=== PATIENT | male | born 1960 | race Hispanic/Latino ===

== ENCOUNTER 2017-11-10 11:53 | Observation (INO) | payer OTHER ==
[~2017-11-10] VITALS: Ht 175.3 cm; Wt 151.0 kg
[~2017-11-10 11:53] MED LIST: BUPR300T54 PO; COLC0.6C3 PO; DIGO125T87 PO; FERR325T22 PO; FURO80TA87 PO; INSU100C6 SQ; INSU100I21 SQ; INSU100V12 SQ; LISI2.5T2 PO; METO100T14 PO; METO2.5T2 PO; METO5VIA2 IJ; MONT10TA24 PO; NITR0.4T SL; POTA10CA44 PO; PRAV20TA4 PO; RANI300C PO; TRAZ150T79 PO; WARF-57 PO; WARF7.5T49 PO
[2017-11-10] MEDS ORDERED: SODIUM CHLORIDE 0.9% 1000ML 1,000 ML IV SCH (12:19)
[2017-11-10] MEDS ORDERED: MORPHINE SULFATE 2 MG/ML 1ML SYG IV PRN (12:30)
[2017-11-10] MEDS ORDERED: LACTULOSE 20 GM/30 ML UDCUP PO PRN (12:30)
[2017-11-10] MEDS ORDERED: NITROGLYCERIN 0.4 MG SL TAB SL PRN ×2 (12:30→17:45)
[2017-11-10] MEDS ORDERED: ACETAMINOPHEN-CODEINE 300/30MG TAB PO PRN ×2 (12:30)
[2017-11-10] MEDS ORDERED: MAG HYDROX/AL HYDROX/SIMETH ES 30 ML SUSP UDCUP PO PRN (12:30)
[2017-11-10] MEDS ORDERED: MEROPENEM 500MG+NS 50ML 50 ML IV SCH (12:30)
[2017-11-10] MEDS ORDERED: HYDRALAZINE HCL 20 MG/ML VIAL IV PRN (12:30)
[2017-11-10] MEDS ORDERED: ACETAMINOPHEN 325 MG TAB PO PRN ×2 (12:30)
[2017-11-10] MEDS ORDERED: GUAIFENESIN-DM 200/20 MG 10 ML PO PRN (12:30)
[2017-11-10] MEDS ORDERED: ONDANSETRON HCL 4 MG/2 ML VIAL IV PRN (12:30)
[2017-11-10] MEDS ORDERED: MORPHINE SULFATE 4 MG/1ML SYG IV PRN (12:30)
[2017-11-10 12:51] LABS: HEMATOCRIT 32.4 % (42-54); MEAN CORPUSCULAR HGB CONC 32.2 g/dL (32.0-36.0); PLATELET COUNT (AUTO) 161 K/uL (130-400); RED BLOOD CELL COUNT(AUTO) 3.73 MIL/uL (4.50-6.20); RED CELL DISTRIBUTION WIDTH 17.2 % (11.0-15.5); WHITE BLOOD COUNT (AUTO) 11.9 K/uL (4.8-10.8)
[2017-11-10] MEDS ORDERED: DIATR MEGLU/DIATRIZOATE SODIUM 30 ML BOTTLE ONE (12:55)
[2017-11-10 13:00] VITALS: BP 134/93
[2017-11-10 13:17] LABS: BAND NEUTROPHILS % (MANUAL) 1 % (0-2); BASOPHILS % (MANUAL) 1 % (0-2); EOSINOPHILS % (MANUAL) 1 % (1-6); LYMPHOCYTES % (MANUAL) 8 % (22-44); MONOCYTES % (MANUAL) 3 % (2-9); SEGMENTED NEUTROPHILS % 86 % (40-70)
[2017-11-10 13:21] LABS: MAN.DIFF COMMENT-IMPRESSION MANUAL DIFFERENTIAL; PLATELET MORPHOLOGY COMMENT ADEQUATE
[2017-11-10 13:41] LABS: ALBUMIN 2.6 g/dL (3.5-5.0); BILIRUBIN,TOTAL 0.6 mg/dL (0.2-1.0); CREATININE 1.9 mg/dL (0.5-1.5); POTASSIUM 3.6 mmol/L (3.5-5.1); TOTAL PROTEIN, SERUM 7.8 g/dL (6.0-8.3)
[2017-11-10 13:46] LABS: INR 2.6 (0.85-1.15); PARTIAL THROMBOPLASTIN TIME 55.5 SEC (26.3-35.5); PROTHROMBIN TIME 26.8 SEC (9.6-11.6)
[2017-11-10] MEDS: MEROPENEM 500 MG VIAL IVP SCH ×2 (13:49→21:22)
[2017-11-10] MEDS: METRONIDAZOLE 500MG/100ML BAG 100 ML IV SCH ×2 (13:49→21:22)
[2017-11-10 14:15] LABS: HIGH SENSITIVITY CRP 168.27 mg/L (0.0-3.0)
[2017-11-10] MEDS ORDERED: POTASSIUM CHLORIDE 20 MEQ ERTAB PO PRN (14:45)
[2017-11-10] MEDS ORDERED: POTASSIUM CHLORIDE 20MEQ/100ML 100 ML IV PRN (14:45)
[2017-11-10] MEDS ORDERED: LIDOCAINE HCL-MPF 1% 2ML VIAL IVP PRN (14:45)
[2017-11-10] MEDS ORDERED: POTASSIUM CHLORIDE 10% ELIXIR 20 MEQ/15 ML UDCUP PO PRN (14:45)
[2017-11-10 15:59] VITALS: BP 130/67
[2017-11-10] MEDS: INSULIN HUMULIN R 100 UNIT/ML 3ML SQ SCH ×2 (16:30→21:00)
[2017-11-10] MEDS ORDERED: TRAMADOL HCL 50 MG TABLET PO PRN (17:45)
[2017-11-10] MEDS ORDERED: COLCHICINE 0.6 MG TABLET PO PRN (17:45)
[2017-11-10] MEDS ORDERED: INSU300I SQ (18:02)
[2017-11-10] MEDS ORDERED: METO5TAB2 PO (18:02)
[2017-11-10] MEDS ORDERED: TRAM50TA4 PO (18:02)
[2017-11-10] MEDS ORDERED: HYDR25PO MC (18:02)
[2017-11-10] MEDS ORDERED: LORA10CA9 PO (18:02)
[2017-11-10] MEDS ORDERED: FLUO40CA7 PO (18:02)
[2017-11-10] MEDS ORDERED: GABA-529 PO (18:02)
[2017-11-10] MEDS ORDERED: ALLO100T PO (18:02)
[2017-11-10] MEDS ORDERED: INSU100I15 SQ (18:03)
[2017-11-10 19:00] VITALS: BP 140/91
[2017-11-10] MEDS: FUROSEMIDE 80 MG TABLET PO SCH (19:25)
[2017-11-10 19:49] LABS: BILIRUBIN,URINE Negative (NEGATIVE); COLOR,URINE Yellow (YELLOW); GLUCOSE, URINE (UA) Negative (NEGATIVE); KETONES,URINE Negative (NEGATIVE); LEUKOCYTE ESTERASE ,URINE Negative (NEGATIVE); NITRATE,URINE Negative (NEGATIVE); OCCULT BLOOD,URINE Negative (NEGATIVE); PROTEIN,URINE Negative (NEGATIVE)
[2017-11-10 19:54] LABS: APPEARANCE,URINE SLIGHTLY CLOUDY (CLEAR)
[2017-11-10 20:05] LABS: RBC,URINE 0-1 /HPF (0-1); WBC,URINE 0-1 /HPF (0-1)
[2017-11-10 20:06] LABS: BACTERIA,URINE Rare /HPF (None Seen); SQUAMOUS EPITHELIAL CELL,UR Few /LPF (0-2)
[2017-11-10] MEDS ORDERED: RANITIDINE HCL 300 MG PO SCH (21:00)
[2017-11-10] MEDS: FAMOTIDINE/PF 20 MG/2 ML VIAL IV SCH (21:22)
[2017-11-10] MEDS: ATORVASTATIN CALCIUM 10 MG TABLET PO SCH (21:23)
[2017-11-10] MEDS: TRAZODONE HCL 50 MG TAB PO SCH (21:23)
[2017-11-10] MEDS: FERROUS SULFATE 325 MG TABLET.DR PO SCH (21:23)
[2017-11-10] MEDS: METOCLOPRAMIDE 5 MG TABLET PO SCH (21:23)
[2017-11-10] MEDS: METOPROLOL TARTRATE 50 MG TAB PO SCH (21:23)
[2017-11-10] MEDS: POTASSIUM CHLORIDE 10 MEQ/TAB.SA PO SCH (21:24)
[2017-11-10] MEDS: GABAPENTIN 100 MG CAPSULE PO SCH (21:24)
[2017-11-10 23:00] VITALS: BP 122/65
[2017-11-11 03:00] VITALS: BP 127/72
[2017-11-11 03:59] LABS: HEMATOCRIT 32.1 % (42-54); MEAN CORPUSCULAR HEMOGLOBIN 27.7 pg (27.0-33.0); MEAN CORPUSCULAR HGB CONC 32.2 g/dL (32.0-36.0); MEAN CORPUSCULAR VOLUME 86.2 fL (79-99); PLATELET COUNT (AUTO) 156 K/uL (130-400); RED BLOOD CELL COUNT(AUTO) 3.72 MIL/uL (4.50-6.20); RED CELL DISTRIBUTION WIDTH 17.2 % (11.0-15.5); WHITE BLOOD COUNT (AUTO) 11.2 K/uL (4.8-10.8)
[2017-11-11 04:19] LABS: INR 2.32 (0.85-1.15); PARTIAL THROMBOPLASTIN TIME 52.7 SEC (26.3-35.5)
[2017-11-11 04:41] LABS: CREATININE 1.6 mg/dL (0.5-1.5); POTASSIUM 3.4 mmol/L (3.5-5.1)
[2017-11-11 05:11] LABS: HIGH SENSITIVITY CRP 136.8 mg/L (0.0-3.0)
[2017-11-11] MEDS: MEROPENEM 500 MG VIAL IVP SCH ×3 (05:33→17:16)
[2017-11-11] MEDS: METRONIDAZOLE 500MG/100ML BAG 100 ML IV SCH ×3 (05:33→20:29)
[2017-11-11] MEDS: INSULIN HUMULIN R 100 UNIT/ML 3ML SQ SCH ×4 (06:56→20:31)
[2017-11-11 08:00] VITALS: BP 139/79
[2017-11-11] MEDS: INSULIN GLARGINE HUM REC ANLOG 300 UNIT SQ SCH (09:00)
[2017-11-11] MEDS ORDERED: WARFARIN SODIUM 7.5 MG TAB PO SCH (09:00)
[2017-11-11] MEDS: FAMOTIDINE/PF 20 MG/2 ML VIAL IV SCH ×2 (10:11→20:29)
[2017-11-11] MEDS: FUROSEMIDE 80 MG TABLET PO SCH ×2 (10:11→17:21)
[2017-11-11] MEDS: FERROUS SULFATE 325 MG TABLET.DR PO SCH ×2 (10:11→20:30)
[2017-11-11] MEDS: MONTELUKAST SODIUM 10 MG TAB PO SCH (10:12)
[2017-11-11] MEDS: FLUOXETINE HCL 20 MG CAPSULE PO SCH (10:12)
[2017-11-11] MEDS: POTASSIUM CHLORIDE 10 MEQ/TAB.SA PO SCH ×2 (10:12→20:30)
[2017-11-11] MEDS: LISINOPRIL 2.5 MG TABLET PO SCH (10:12)
[2017-11-11] MEDS: ALLOPURINOL 100 MG TABLET PO SCH (10:12)
[2017-11-11] MEDS: LORATADINE 10 MG TABLET PO SCH (10:12)
[2017-11-11] MEDS: METOPROLOL TARTRATE 50 MG TAB PO SCH ×2 (10:12→20:31)
[2017-11-11] MEDS: METOCLOPRAMIDE 5 MG TABLET PO SCH ×3 (10:13→20:30)
[2017-11-11] MEDS: GABAPENTIN 100 MG CAPSULE PO SCH ×3 (10:13→20:29)
[2017-11-11] MEDS: METOLAZONE 2.5 MG TABLET PO SCH (10:13)
[2017-11-11 12:00] VITALS: BP 157/86
[2017-11-11 16:00] VITALS: BP 180/96
[2017-11-11] MEDS ORDERED: DIGOXIN 125 MCG TABLET PO SCH (16:00)
[2017-11-11 19:00] VITALS: BP 117/86
[2017-11-11] MEDS: ATORVASTATIN CALCIUM 10 MG TABLET PO SCH (20:31)
[2017-11-11] MEDS: TRAZODONE HCL 50 MG TAB PO SCH (20:31)
[2017-11-11] MEDS ORDERED: HYDROXYZINE HCL 25 MG TABLET PO SCH (21:00)
[2017-11-11 23:00] VITALS: BP 129/74
[2017-11-12] MEDS: METRONIDAZOLE 500MG/100ML BAG 100 ML IV SCH ×2 (02:58→12:37)
[2017-11-12] MEDS: MEROPENEM 500 MG VIAL IVP SCH ×2 (02:58→12:36)
[2017-11-12 03:00] VITALS: BP 124/80
[2017-11-12 05:54] LABS: HEMATOCRIT 34.8 % (42-54); MEAN CORPUSCULAR HEMOGLOBIN 27.5 pg (27.0-33.0); MEAN CORPUSCULAR HGB CONC 31.9 g/dL (32.0-36.0); MEAN CORPUSCULAR VOLUME 86.2 fL (79-99); PLATELET COUNT (AUTO) 175 K/uL (130-400); RED BLOOD CELL COUNT(AUTO) 4.04 MIL/uL (4.50-6.20); RED CELL DISTRIBUTION WIDTH 17.1 % (11.0-15.5); WHITE BLOOD COUNT (AUTO) 12.5 K/uL (4.8-10.8)
[2017-11-12 06:07] LABS: INR 2.4 (0.85-1.15); PARTIAL THROMBOPLASTIN TIME 51.3 SEC (26.3-35.5); PROTHROMBIN TIME 24.8 SEC (9.6-11.6)
[2017-11-12 06:24] LABS: CREATININE 1.6 mg/dL (0.5-1.5); POTASSIUM 3.5 mmol/L (3.5-5.1)
[2017-11-12] MEDS: INSULIN HUMULIN R 100 UNIT/ML 3ML SQ SCH ×2 (06:36→11:30)
[2017-11-12 08:00] VITALS: BP 150/80
[2017-11-12] MEDS ORDERED: LOPERAMIDE HCL 2 MG CAP PO PRN (08:30)
[2017-11-12 08:31] LABS: HIGH SENSITIVITY CRP 95.86 mg/L (0.0-3.0)
[2017-11-12] MEDS: INSULIN GLARGINE HUM REC ANLOG 300 UNIT SQ SCH (09:00)
[2017-11-12] MEDS ORDERED: LACTOBACILLUS RHAMNOSUS GG 1 EACH CAP.SPRINK PO SCH (09:00)
[2017-11-12] MEDS ORDERED: HYDROCORTISONE 25 MG SUPPOSITORY PR SCH (09:00)
[2017-11-12] MEDS: LISINOPRIL 2.5 MG TABLET PO SCH (09:12)
[2017-11-12] MEDS: METOLAZONE 2.5 MG TABLET PO SCH (09:12)
[2017-11-12] MEDS: FAMOTIDINE/PF 20 MG/2 ML VIAL IV SCH (09:12)
[2017-11-12] MEDS: GABAPENTIN 100 MG CAPSULE PO SCH ×2 (09:13→13:57)
[2017-11-12] MEDS: ALLOPURINOL 100 MG TABLET PO SCH (09:13)
[2017-11-12] MEDS: METOPROLOL TARTRATE 50 MG TAB PO SCH (09:13)
[2017-11-12] MEDS: METOCLOPRAMIDE 5 MG TABLET PO SCH ×2 (09:13→13:57)
[2017-11-12] MEDS: POTASSIUM CHLORIDE 10 MEQ/TAB.SA PO SCH (09:14)
[2017-11-12] MEDS: LORATADINE 10 MG TABLET PO SCH (09:14)
[2017-11-12] MEDS: FLUOXETINE HCL 20 MG CAPSULE PO SCH (09:14)
[2017-11-12] MEDS: FERROUS SULFATE 325 MG TABLET.DR PO SCH (09:15)
[2017-11-12] MEDS: FUROSEMIDE 80 MG TABLET PO SCH (09:15)
[2017-11-12] MEDS: MONTELUKAST SODIUM 10 MG TAB PO SCH (09:20)
[2017-11-12 11:00] VITALS: BP 131/67
[2017-11-12 16:00] VITALS: BP 117/72
== END 2017-11-12 17:25 | disposition home or self-care (01) ==
LOC: EDH 11:53 → EDHIP 11:54 → 3BH 12:16
PROVIDERS: ADMIT Internal Medicine; ATTEND Internal Medicine
DX: K57.92 Diverticulitis of intestine, part unspecified, without perforation or abscess without bleeding (principal); E66.01 Morbid (severe) obesity due to excess calories; I13.0 Hypertensive heart and chronic kidney disease with heart failure and stage 1 through stage 4 chronic kidney disease, or unspecified chronic kidney disease; E11.22 Type 2 diabetes mellitus with diabetic chronic kidney disease; N18.3 Chronic kidney disease, stage 3 (moderate); I50.42 Chronic combined systolic (congestive) and diastolic (congestive) heart failure; J96.10 Chronic respiratory failure, unspecified whether with hypoxia or hypercapnia; I48.91 Unspecified atrial fibrillation; E78.5 Hyperlipidemia, unspecified; G47.33 Obstructive sleep apnea (adult) (pediatric); I25.10 Atherosclerotic heart disease of native coronary artery without angina pectoris; J44.9 Chronic obstructive pulmonary disease, unspecified; K21.9 Gastro-esophageal reflux disease without esophagitis; D72.829 Elevated white blood cell count, unspecified; M10.9 Gout, unspecified; F31.9 Bipolar disorder, unspecified; Z95.2 Presence of prosthetic heart valve; Z82.49 Family history of ischemic heart disease and other diseases of the circulatory system; Z79.01 Long term (current) use of anticoagulants
CPT/HCPCS: 36415 ×3; 74176; 80048 ×2; 80053; 81001; 82948 ×10; 85025; 85027 ×2; 85610 ×3; 85730 ×3; 86141 ×3; 87040 ×2; 87324; 87507; 96365; 96366 ×3; 96375; 96376 ×3; 99285; A4218 ×6; G0378 ×54; J2185 ×7; J3490 ×11; J7030; Q9963

== ENCOUNTER 2017-12-26 16:49 | Observation (INO) | payer OTHER ==
[~2017-12-26] VITALS: Ht 175.3 cm; Wt 162.5 kg
[~2017-12-26 16:49] MED LIST changes: +ALLO100T PO; -BUPR300T54 PO; +FLUO40CA7 PO; +GABA-529 PO; +HYDR25PO MC; -INSU100C6 SQ; +INSU100I15 SQ; -INSU100I21 SQ; -INSU100V12 SQ; +INSU300I SQ; +LORA10CA9 PO; +METO5TAB2 PO; -METO5VIA2 IJ; +TRAM50TA4 PO; -WARF-57 PO
[2017-12-26 17:13] LABS: EOSINOPHILS % (AUTO) 2.1 % (0.0-8.0); HEMATOCRIT 35.4 % (42-54); MEAN CORPUSCULAR HEMOGLOBIN 28.5 pg (27.0-33.0); MEAN CORPUSCULAR VOLUME 88.9 fL (79-99); NEUTROPHILS % (AUTO) 74.9 % (40.0-77.0); PLATELET COUNT (AUTO) 125 K/uL (130-400); RED BLOOD CELL COUNT(AUTO) 3.98 MIL/uL (4.50-6.20); RED CELL DISTRIBUTION WIDTH 19.5 % (11.0-15.5); WHITE BLOOD COUNT (AUTO) 8.7 K/uL (4.8-10.8)
[2017-12-26 17:24] LABS: CREATININE 1.9 mg/dL (0.5-1.5); POTASSIUM 3.7 mmol/L (3.5-5.1)
[2017-12-26] MEDS ORDERED: ASPIRIN 325 MG TABLET ONE (17:24)
[2017-12-26] MEDS ORDERED: ALBUMIN (HUMAN) 25% 100 ML IV ONE (17:24)
[2017-12-26] MEDS ORDERED: FUROSEMIDE 10 MG/ML 4ML VIAL ONE (17:25)
[2017-12-26 17:28] LABS: INR 2.7 (0.85-1.15); PROTHROMBIN TIME 27.8 SEC (9.6-11.6)
[2017-12-26 17:29] LABS: ALBUMIN 3.3 g/dL (3.5-5.0); BILIRUBIN,TOTAL 0.9 mg/dL (0.2-1.0); TOTAL PROTEIN, SERUM 8.4 g/dL (6.0-8.3)
[2017-12-26 17:45] LABS: B-TYPE NATRIURETIC PEPTIDE 498 pg/mL (0-100)
[2017-12-26] MEDS ORDERED: LACTULOSE 20 GM/30 ML UDCUP PO PRN (20:15)
[2017-12-26] MEDS ORDERED: CLONIDINE HCL 0.1 MG TABLET PO PRN (20:15)
[2017-12-26] MEDS ORDERED: ONDANSETRON HCL MDV 20ML 2 MG/ML VIAL IVP PRN (20:15)
[2017-12-26] MEDS ORDERED: ACETAMINOPHEN 325 MG TAB PO PRN ×2 (20:15)
[2017-12-26 22:35] VITALS: BP 140/76
[2017-12-26] MEDS ORDERED: GLUCAGON 1MG KIT 1 MG ML IM PRN (23:15)
[2017-12-26] MEDS ORDERED: NITROGLYCERIN 0.4 MG SL TAB SL PRN (23:15)
[2017-12-26] MEDS ORDERED: POTASSIUM CHLORIDE 20MEQ/100ML 100 ML IV PRN (23:15)
[2017-12-26] MEDS ORDERED: POTASSIUM CHLORIDE 10% ELIXIR 20 MEQ/15 ML UDCUP PO PRN (23:15)
[2017-12-26] MEDS ORDERED: DEXTROSE 50%-WATER 50 ML DISP.SYRIN IV PRN (23:15)
[2017-12-26] MEDS: IPRATROPIUM/ALBUTEROL SULFATE 3 ML SOLUTION IH PRN (23:29)
[2017-12-26] MEDS ORDERED: HYDRALAZINE HCL 20 MG/ML VIAL IV PRN (23:45)
[2017-12-27 03:47] VITALS: BP 116/82
[2017-12-27 04:05] LABS: HEMATOCRIT 32.7 % (42-54); MEAN CORPUSCULAR HEMOGLOBIN 28.8 pg (27.0-33.0); MEAN CORPUSCULAR HGB CONC 32.6 g/dL (32.0-36.0); MEAN CORPUSCULAR VOLUME 88.3 fL (79-99); PLATELET COUNT (AUTO) 124 K/uL (130-400); RED CELL DISTRIBUTION WIDTH 19.1 % (11.0-15.5); WHITE BLOOD COUNT (AUTO) 7.6 K/uL (4.8-10.8)
[2017-12-27 04:11] LABS: CREATININE 1.7 mg/dL (0.5-1.5); POTASSIUM 3.4 mmol/L (3.5-5.1)
[2017-12-27] MEDS: INSULIN R PO SSI SQ SCH ×4 (05:33→22:02)
[2017-12-27] MEDS: INSULIN R NPO SS1 SQ SCH ×2 (05:33)
[2017-12-27] MEDS: FUROSEMIDE 10 MG/ML 4ML VIAL IVP SCH ×2 (05:41→17:33)
[2017-12-27] MEDS: POTASSIUM CHLORIDE 20 MEQ ERTAB PO PRN ×2 (05:42→11:40)
[2017-12-27] MEDS: IPRATROPIUM/ALBUTEROL SULFATE 3 ML SOLUTION IH PRN ×3 (06:19→18:42)
[2017-12-27 07:42] VITALS: BP 110/54
[2017-12-27 09:17] LABS: CREATINE KINASE MB 0.5 ng/mL (0.5-3.6); CREATINE KINASE, TOTAL 57 U/L (21-232); DIGOXIN 0.68 ng/mL (0.50-2.00); MYOGLOBIN 88 ng/mL (10-92); TROPONIN I < 0.04 ng/mL (0.00-0.06)
[2017-12-27] MEDS ORDERED: COLCHICINE 0.6 MG PO PRN (09:45)
[2017-12-27 11:17] VITALS: BP 145/94
[2017-12-27] MEDS ORDERED: INSULIN HUMULIN R 100 UNIT/ML 3ML SQ SCH (11:30)
[2017-12-27] MEDS: LISINOPRIL 2.5 MG TABLET PO SCH (11:39)
[2017-12-27] MEDS: METOCLOPRAMIDE 5 MG TABLET PO SCH ×2 (11:39→17:30)
[2017-12-27] MEDS: GABAPENTIN 100 MG CAPSULE PO SCH ×2 (14:03→20:31)
[2017-12-27] MEDS ORDERED: DIGOXIN 125 MCG TABLET PO SCH (16:00)
[2017-12-27] MEDS: WARFARIN SODIUM 7.5 MG TAB PO SCH ×2 (16:00→17:45)
[2017-12-27 16:40] VITALS: BP 141/79
[2017-12-27] MEDS: FERROUS SULFATE 325 MG TABLET.DR PO SCH (17:30)
[2017-12-27] MEDS: POTASSIUM CHLORIDE 10 MEQ/TAB.SA PO SCH (17:32)
[2017-12-27] MEDS ORDERED: PHARMACY COMMUNICATION MISC SCH (18:00)
[2017-12-27] MEDS ORDERED: COLCHICINE 0.6 MG PO (18:12)
[2017-12-27 19:27] VITALS: BP 153/94
[2017-12-27] MEDS: METOPROLOL TARTRATE 50 MG TAB PO SCH (20:32)
[2017-12-27] MEDS ORDERED: MONTELUKAST SODIUM 10 MG TAB PO SCH (21:00)
[2017-12-27] MEDS ORDERED: ATORVASTATIN CALCIUM 10 MG TABLET PO SCH (21:00)
[2017-12-27] MEDS ORDERED: TRAZODONE HCL 50 MG TAB PO SCH (21:00)
[2017-12-27 23:31] VITALS: BP 157/96
[2017-12-28] MEDS: IPRATROPIUM/ALBUTEROL SULFATE 3 ML SOLUTION IH PRN ×3 (00:32→10:36)
[2017-12-28 03:30] VITALS: BP 141/89
[2017-12-28 03:50] LABS: HEMATOCRIT 33.2 % (42-54); MEAN CORPUSCULAR HEMOGLOBIN 28.3 pg (27.0-33.0); MEAN CORPUSCULAR HGB CONC 31.8 g/dL (32.0-36.0); PLATELET COUNT (AUTO) 108 K/uL (130-400); RED BLOOD CELL COUNT(AUTO) 3.72 MIL/uL (4.50-6.20); RED CELL DISTRIBUTION WIDTH 19.1 % (11.0-15.5); WHITE BLOOD COUNT (AUTO) 7.3 K/uL (4.8-10.8)
[2017-12-28 04:01] LABS: CREATININE 1.7 mg/dL (0.5-1.5); INR 2.13 (0.85-1.15); PARTIAL THROMBOPLASTIN TIME 43.1 SEC (26.3-35.5); POTASSIUM 3.5 mmol/L (3.5-5.1)
[2017-12-28 04:25] LABS: B-TYPE NATRIURETIC PEPTIDE 341 pg/mL (0-100)
[2017-12-28] MEDS: INSULIN R PO SSI SQ SCH ×2 (05:51→11:49)
[2017-12-28] MEDS: FUROSEMIDE 10 MG/ML 4ML VIAL IVP SCH (05:52)
[2017-12-28] MEDS: POTASSIUM CHLORIDE 20 MEQ ERTAB PO PRN (05:53)
[2017-12-28] MEDS: METOCLOPRAMIDE 5 MG TABLET PO SCH ×2 (05:55→11:43)
[2017-12-28 07:28] VITALS: BP 147/84
[2017-12-28] MEDS ORDERED: FLUOXETINE HCL 10 MG CAPSULE PO SCH (09:00)
[2017-12-28] MEDS ORDERED: ALLOPURINOL 100 MG TABLET PO SCH (09:00)
[2017-12-28] MEDS ORDERED: METOLAZONE 2.5 MG TABLET PO SCH (09:00)
[2017-12-28] MEDS: METOPROLOL TARTRATE 50 MG TAB PO SCH (09:03)
[2017-12-28] MEDS: POTASSIUM CHLORIDE 10 MEQ/TAB.SA PO SCH (09:04)
[2017-12-28] MEDS: GABAPENTIN 100 MG CAPSULE PO SCH (09:04)
[2017-12-28] MEDS: FERROUS SULFATE 325 MG TABLET.DR PO SCH (09:04)
[2017-12-28] MEDS: LISINOPRIL 2.5 MG TABLET PO SCH (09:04)
[2017-12-28 11:09] VITALS: BP 145/87
[2017-12-28] MEDS ORDERED: FUROSEMIDE 80 MG TABLET PO SCH (17:00)
== END 2017-12-28 15:22 | disposition home or self-care (01) ==
LOC: EDH 16:49 → EDHIP 18:40 → INTOOBSV 18:40 → 2AH 22:19
PROVIDERS: ADMIT Family Medicine; ATTEND Family Medicine
DX: I13.0 Hypertensive heart and chronic kidney disease with heart failure and stage 1 through stage 4 chronic kidney disease, or unspecified chronic kidney disease (principal); I50.43 Acute on chronic combined systolic (congestive) and diastolic (congestive) heart failure; J96.11 Chronic respiratory failure with hypoxia; I48.91 Unspecified atrial fibrillation; N18.3 Chronic kidney disease, stage 3 (moderate); E78.5 Hyperlipidemia, unspecified; E66.01 Morbid (severe) obesity due to excess calories; F32.9 Major depressive disorder, single episode, unspecified; M10.9 Gout, unspecified; I25.10 Atherosclerotic heart disease of native coronary artery without angina pectoris; G47.33 Obstructive sleep apnea (adult) (pediatric); Z79.01 Long term (current) use of anticoagulants; Z95.2 Presence of prosthetic heart valve; G62.9 Polyneuropathy, unspecified; Z90.49 Acquired absence of other specified parts of digestive tract; E11.9 Type 2 diabetes mellitus without complications
CPT/HCPCS: 36415 ×3; 71045 ×2; 80048 ×2; 80053; 80162; 82550 ×2; 82553; 82948 ×7; 83874; 83880 ×4; 84484 ×2; 85025; 85027 ×2; 85610 ×2; 85730 ×2; 93005 ×2; 94640 ×7; 94664; 96372 ×2; 96374; 96376 ×2; 99285; G0378 ×45; J1815 ×2; J1940 ×4; P9046

== ENCOUNTER 2018-01-26 17:01 | Inpatient (IN) | payer OTHER ==
[~2018-01-26] VITALS: Ht 175.3 cm; Wt 170.6 kg
[2018-01-26 17:22] LABS: BASOPHILS % (AUTO) 0.8 % (0.0-5.0); EOSINOPHILS % (AUTO) 2.4 % (0.0-8.0); HEMATOCRIT 32.6 % (42-54); LYMPHOCYTES % (AUTO) 10.2 % (21.0-51.0); MEAN CORPUSCULAR HGB CONC 32.8 g/dL (32.0-36.0); MEAN CORPUSCULAR VOLUME 88.4 fL (79-99); MONOCYTES % (AUTO) 6.3 % (3.0-13.0); NEUTROPHILS % (AUTO) 80.3 % (40.0-77.0); PLATELET COUNT (AUTO) 140 K/uL (130-400); RED BLOOD CELL COUNT(AUTO) 3.69 MIL/uL (4.50-6.20); RED CELL DISTRIBUTION WIDTH 18.6 % (11.0-15.5); WHITE BLOOD COUNT (AUTO) 8.8 K/uL (4.8-10.8)
[2018-01-26 17:28] LABS: ABG BASE EXCESS 3.4 mmol/L (-2.0-3.0); ABG HCO3 30.8 mmol/L (21.0-28.0); ABG OXYGEN SATURATION 99.1 % (95.0-99.0); ABG PCO2 58 mmHg (35-48)
[2018-01-26] MEDS ORDERED: IPRATROPIUM/ALBUTEROL SULFATE 3 ML SOLUTION IH ONE (17:32)
[2018-01-26 17:37] LABS: INR 2.18 (0.85-1.15); PARTIAL THROMBOPLASTIN TIME 43.4 SEC (26.3-35.5); PROTHROMBIN TIME 22.5 SEC (9.6-11.6)
[2018-01-26 17:45] LABS: CREATININE 2.8 mg/dL (0.5-1.5); POTASSIUM 5.3 mmol/L (3.5-5.1)
[2018-01-26 18:11] LABS: ALBUMIN 3.2 g/dL (3.5-5.0); BILIRUBIN,TOTAL 0.8 mg/dL (0.2-1.0); CREATINE KINASE MB 1.2 ng/mL (0.5-3.6)
[2018-01-26 18:13] LABS: B-TYPE NATRIURETIC PEPTIDE 521 pg/mL (0-100)
[2018-01-26 18:57] LABS: ABG BASE EXCESS 2.4 mmol/L (-2.0-3.0); ABG HCO3 28.8 mmol/L (21.0-28.0); ABG OXYGEN SATURATION 98.8 % (95.0-99.0); ABG PCO2 52 mmHg (35-48)
[2018-01-26] MEDS ORDERED: SODIUM POLYSTYRENE SULFONATE 15 GM/60 ML ML ONE (19:43)
[2018-01-26 23:15] VITALS: BP 119/70
[2018-01-26] MEDS ORDERED: TAMS0.4C32 PO (23:29)
[2018-01-27] MEDS ORDERED: GLUCAGON 1MG KIT 1 MG ML IM PRN (00:30)
[2018-01-27] MEDS ORDERED: LACTULOSE 20 GM/30 ML UDCUP PO PRN (00:30)
[2018-01-27] MEDS ORDERED: ACETAMINOPHEN 325 MG TAB PO PRN ×2 (00:30)
[2018-01-27] MEDS ORDERED: NITROGLYCERIN 0.4 MG SL TAB SL PRN ×2 (00:30→16:30)
[2018-01-27] MEDS ORDERED: DEXTROSE 50%-WATER 50 ML DISP.SYRIN IV PRN (00:30)
[2018-01-27] MEDS ORDERED: GUAIFENESIN-DM 200/20 MG 10 ML PO PRN (00:30)
[2018-01-27] MEDS ORDERED: LORAZEPAM 2 MG/ML 1 ML VIAL IM ONE (00:30)
[2018-01-27 01:45] LABS: CREATINE KINASE MB 0.8 ng/mL (0.5-3.6); CREATINE KINASE, TOTAL 73 U/L (21-232); MYOGLOBIN 148 ng/mL (10-92); TROPONIN I < 0.04 ng/mL (0.00-0.06)
[2018-01-27 04:00] VITALS: BP 109/68
[2018-01-27 04:03] LABS: INR 2.12 (0.85-1.15); PROTHROMBIN TIME 21.9 SEC (9.6-11.6)
[2018-01-27 04:08] LABS: HEMATOCRIT 31.5 % (42-54); MEAN CORPUSCULAR HEMOGLOBIN 28.6 pg (27.0-33.0); MEAN CORPUSCULAR HGB CONC 32.6 g/dL (32.0-36.0); MEAN CORPUSCULAR VOLUME 87.9 fL (79-99); PLATELET COUNT (AUTO) 123 K/uL (130-400); RED BLOOD CELL COUNT(AUTO) 3.59 MIL/uL (4.50-6.20); WHITE BLOOD COUNT (AUTO) 8.9 K/uL (4.8-10.8)
[2018-01-27 04:12] LABS: B-TYPE NATRIURETIC PEPTIDE 407 pg/mL (0-100)
[2018-01-27 04:15] LABS: CREATININE 2.8 mg/dL (0.5-1.5); DIGOXIN 1.11 ng/mL (0.50-2.00); POTASSIUM 4.9 mmol/L (3.5-5.1); THYROID STIMULATING HORMONE 3.43 uIU/mL (0.36-3.74)
[2018-01-27] MEDS: IPRATROPIUM/ALBUTEROL SULFATE 3 ML SOLUTION IH SCH ×3 (06:00→18:08)
[2018-01-27] MEDS ORDERED: INSULIN R NPO SS1 SQ SCH (06:00)
[2018-01-27] MEDS: INSULIN R PO SSI SQ SCH ×4 (07:30→21:05)
[2018-01-27 07:43] LABS: CREATINE KINASE MB 1.1 ng/mL (0.5-3.6); CREATINE KINASE, TOTAL 72 U/L (21-232); MYOGLOBIN 139 ng/mL (10-92); TROPONIN I < 0.04 ng/mL (0.00-0.06)
[2018-01-27 07:45] VITALS: BP 120/72
[2018-01-27] MEDS: LACTULOSE 20 GM/30 ML UDCUP PO SCH ×2 (10:05→20:22)
[2018-01-27] MEDS: FUROSEMIDE 10 MG/ML 4ML VIAL IVP SCH ×2 (10:05→20:22)
[2018-01-27] MEDS: FAMOTIDINE 20MG TAB 20 MG TAB PO SCH (10:05)
[2018-01-27 11:00] VITALS: BP 118/68
[2018-01-27] MEDS ORDERED: COLCHICINE 0.6 MG TABLET PO PRN (16:30)
[2018-01-27 16:31] VITALS: BP 125/82
[2018-01-27] MEDS: FERROUS SULFATE 325 MG TABLET.DR PO SCH (17:42)
[2018-01-27] MEDS: FUROSEMIDE 80 MG TABLET PO SCH (17:42)
[2018-01-27] MEDS: POTASSIUM CHLORIDE 10 MEQ/TAB.SA PO SCH (17:43)
[2018-01-27 19:50] VITALS: BP 150/81
[2018-01-27] MEDS: TAMSULOSIN HCL 0.4 MG CAP.ER.24H PO SCH (20:23)
[2018-01-27] MEDS: HYDROXYZINE HCL 25 MG TABLET PO SCH (20:23)
[2018-01-27] MEDS: ATORVASTATIN CALCIUM 10 MG TABLET PO SCH (20:23)
[2018-01-27] MEDS: MONTELUKAST SODIUM 10 MG TAB PO SCH (20:23)
[2018-01-27] MEDS: RANITIDINE HCL 15 MG/1 ML PO SCH (20:23)
[2018-01-27] MEDS: METOPROLOL TARTRATE 50 MG TAB PO SCH (20:23)
[2018-01-27] MEDS: TRAZODONE HCL 50 MG TAB PO SCH (20:23)
[2018-01-27] MEDS: GABAPENTIN 100 MG CAPSULE PO SCH (20:31)
[2018-01-27] MEDS: METOCLOPRAMIDE 5 MG TABLET PO SCH (20:31)
[2018-01-28] VITALS (7 sets, daily range): BP systolic 121–138; BP diastolic 54–94
[2018-01-28] MEDS: IPRATROPIUM/ALBUTEROL SULFATE 3 ML SOLUTION IH SCH ×5 (00:47→23:34)
[2018-01-28] MEDS: TRAMADOL HCL 50 MG TABLET PO PRN ×2 (02:43→12:51)
[2018-01-28 05:33] LABS: HEMATOCRIT 33.1 % (42-54); MEAN CORPUSCULAR HEMOGLOBIN 28.8 pg (27.0-33.0); MEAN CORPUSCULAR HGB CONC 32.5 g/dL (32.0-36.0); MEAN CORPUSCULAR VOLUME 88.5 fL (79-99); PLATELET COUNT (AUTO) 109 K/uL (130-400); RED BLOOD CELL COUNT(AUTO) 3.74 MIL/uL (4.50-6.20); RED CELL DISTRIBUTION WIDTH 18.3 % (11.0-15.5); WHITE BLOOD COUNT (AUTO) 8.3 K/uL (4.8-10.8)
[2018-01-28 05:50] LABS: CREATININE 2.2 mg/dL (0.5-1.5); POTASSIUM 4.1 mmol/L (3.5-5.1)
[2018-01-28 05:51] LABS: B-TYPE NATRIURETIC PEPTIDE 633 pg/mL (0-100)
[2018-01-28] MEDS: INSULIN R PO SSI SQ SCH ×4 (06:05→21:45)
[2018-01-28] MEDS: FUROSEMIDE 80 MG TABLET PO SCH (07:11)
[2018-01-28] MEDS: FUROSEMIDE 10 MG/ML 4ML VIAL IVP SCH ×2 (07:38→21:37)
[2018-01-28] MEDS: FLUOXETINE HCL 20 MG CAPSULE PO SCH (07:40)
[2018-01-28] MEDS: LISINOPRIL 2.5 MG TABLET PO SCH (07:40)
[2018-01-28] MEDS: METOCLOPRAMIDE 5 MG TABLET PO SCH ×3 (07:40→21:36)
[2018-01-28] MEDS: METOLAZONE 2.5 MG TABLET PO SCH (07:40)
[2018-01-28] MEDS: FAMOTIDINE 20MG TAB 20 MG TAB PO SCH (07:41)
[2018-01-28] MEDS: FERROUS SULFATE 325 MG TABLET.DR PO SCH ×2 (07:41→15:40)
[2018-01-28] MEDS: POTASSIUM CHLORIDE 10 MEQ/TAB.SA PO SCH ×2 (07:41→15:40)
[2018-01-28] MEDS: LORATADINE 10 MG TABLET PO SCH (07:41)
[2018-01-28] MEDS: METOPROLOL TARTRATE 50 MG TAB PO SCH ×2 (07:41→21:36)
[2018-01-28] MEDS: ALLOPURINOL 100 MG TABLET PO SCH (07:41)
[2018-01-28] MEDS: LACTULOSE 20 GM/30 ML UDCUP PO SCH ×2 (07:41→21:35)
[2018-01-28] MEDS: GABAPENTIN 100 MG CAPSULE PO SCH ×3 (07:41→21:36)
[2018-01-28] MEDS: RANITIDINE HCL 15 MG/1 ML PO SCH ×2 (07:42→21:36)
[2018-01-28] MEDS ORDERED: INSULIN GLARGINE 100 UNITS/ML 10 ML VIAL SQ SCH (08:00)
[2018-01-28] MEDS ORDERED: DIGOXIN 125 MCG TABLET PO SCH (09:00)
[2018-01-28] MEDS: WARFARIN SODIUM 7.5 MG TAB PO SCH (15:40)
[2018-01-28] MEDS: MONTELUKAST SODIUM 10 MG TAB PO SCH (21:36)
[2018-01-28] MEDS: TAMSULOSIN HCL 0.4 MG CAP.ER.24H PO SCH (21:36)
[2018-01-28] MEDS: ATORVASTATIN CALCIUM 10 MG TABLET PO SCH (21:36)
[2018-01-28] MEDS: HYDROXYZINE HCL 25 MG TABLET PO SCH (21:37)
[2018-01-28] MEDS: TRAZODONE HCL 50 MG TAB PO SCH (21:37)
[2018-01-29] VITALS (7 sets, daily range): BP systolic 105–148; BP diastolic 65–94
[2018-01-29 05:24] LABS: HEMATOCRIT 32.2 % (42-54); MEAN CORPUSCULAR HEMOGLOBIN 29.1 pg (27.0-33.0); MEAN CORPUSCULAR VOLUME 88.2 fL (79-99); PLATELET COUNT (AUTO) 110 K/uL (130-400); RED BLOOD CELL COUNT(AUTO) 3.65 MIL/uL (4.50-6.20); RED CELL DISTRIBUTION WIDTH 18.3 % (11.0-15.5); WHITE BLOOD COUNT (AUTO) 9.4 K/uL (4.8-10.8)
[2018-01-29 05:31] LABS: INR 1.62 (0.85-1.15); PROTHROMBIN TIME 16.8 SEC (9.6-11.6)
[2018-01-29 05:34] LABS: CREATININE 1.9 mg/dL (0.5-1.5); POTASSIUM 4.1 mmol/L (3.5-5.1)
[2018-01-29 05:50] LABS: B-TYPE NATRIURETIC PEPTIDE 642 pg/mL (0-100)
[2018-01-29] MEDS: INSULIN R PO SSI SQ SCH ×4 (06:16→21:00)
[2018-01-29] MEDS: IPRATROPIUM/ALBUTEROL SULFATE 3 ML SOLUTION IH SCH ×4 (06:28→23:54)
[2018-01-29] MEDS: INSULIN GLARGINE 100 UNITS/ML 10 ML VIAL SQ SCH (08:00)
[2018-01-29] MEDS: FUROSEMIDE 10 MG/ML 4ML VIAL IVP SCH ×2 (10:04→21:22)
[2018-01-29] MEDS: LACTULOSE 20 GM/30 ML UDCUP PO SCH ×2 (12:14→21:22)
[2018-01-29] MEDS: RANITIDINE HCL 15 MG/1 ML PO SCH ×2 (12:14→21:21)
[2018-01-29] MEDS: LORATADINE 10 MG TABLET PO SCH (12:16)
[2018-01-29] MEDS: POTASSIUM CHLORIDE 10 MEQ/TAB.SA PO SCH ×2 (12:16→16:21)
[2018-01-29] MEDS: GABAPENTIN 100 MG CAPSULE PO SCH ×3 (12:16→21:21)
[2018-01-29] MEDS: METOLAZONE 2.5 MG TABLET PO SCH (12:16)
[2018-01-29] MEDS: METOCLOPRAMIDE 5 MG TABLET PO SCH ×3 (12:16→21:21)
[2018-01-29] MEDS: METOPROLOL TARTRATE 50 MG TAB PO SCH ×2 (12:17→21:22)
[2018-01-29] MEDS: FLUOXETINE HCL 20 MG CAPSULE PO SCH (12:17)
[2018-01-29] MEDS: LISINOPRIL 2.5 MG TABLET PO SCH (12:17)
[2018-01-29] MEDS: FERROUS SULFATE 325 MG TABLET.DR PO SCH ×2 (12:17→16:21)
[2018-01-29] MEDS: LEVOFLOXACIN 500 MG/D5W 100 ML 100 ML IV SCH (12:20)
[2018-01-29] MEDS: ALLOPURINOL 100 MG TABLET PO SCH (12:20)
[2018-01-29] MEDS: TRAMADOL HCL 50 MG TABLET PO PRN (14:16)
[2018-01-29] MEDS: WARFARIN SODIUM 7.5 MG TAB PO SCH (16:00)
[2018-01-29] MEDS: TAMSULOSIN HCL 0.4 MG CAP.ER.24H PO SCH (21:21)
[2018-01-29] MEDS: TRAZODONE HCL 50 MG TAB PO SCH (21:21)
[2018-01-29] MEDS: HYDROXYZINE HCL 25 MG TABLET PO SCH (21:21)
[2018-01-29] MEDS: ATORVASTATIN CALCIUM 10 MG TABLET PO SCH (21:21)
[2018-01-29] MEDS: MONTELUKAST SODIUM 10 MG TAB PO SCH (21:22)
[2018-01-30 03:59] VITALS: BP 122/78
[2018-01-30 04:18] LABS: HEMATOCRIT 31.8 % (42-54); MEAN CORPUSCULAR HEMOGLOBIN 29.3 pg (27.0-33.0); MEAN CORPUSCULAR HGB CONC 32.9 g/dL (32.0-36.0); MEAN CORPUSCULAR VOLUME 89.1 fL (79-99); PLATELET COUNT (AUTO) 111 K/uL (130-400); RED BLOOD CELL COUNT(AUTO) 3.57 MIL/uL (4.50-6.20); RED CELL DISTRIBUTION WIDTH 18.8 % (11.0-15.5); WHITE BLOOD COUNT (AUTO) 8.7 K/uL (4.8-10.8)
[2018-01-30 04:26] LABS: POTASSIUM 4.2 mmol/L (3.5-5.1)
[2018-01-30 04:27] LABS: INR 1.51 (0.85-1.15); PROTHROMBIN TIME 15.7 SEC (9.6-11.6)
[2018-01-30] MEDS: INSULIN R PO SSI SQ SCH ×4 (05:21→21:23)
[2018-01-30] MEDS: IPRATROPIUM/ALBUTEROL SULFATE 3 ML SOLUTION IH SCH ×4 (06:16→23:53)
[2018-01-30 07:51] VITALS: BP 130/63
[2018-01-30] MEDS: INSULIN GLARGINE 100 UNITS/ML 10 ML VIAL SQ SCH (08:00)
[2018-01-30] MEDS: LACTULOSE 20 GM/30 ML UDCUP PO SCH ×2 (09:00→20:21)
[2018-01-30] MEDS: LEVOFLOXACIN 500 MG/D5W 100 ML 100 ML IV SCH (09:53)
[2018-01-30] MEDS: FLUOXETINE HCL 20 MG CAPSULE PO SCH (09:54)
[2018-01-30] MEDS: RANITIDINE HCL 15 MG/1 ML PO SCH ×2 (09:54→20:19)
[2018-01-30] MEDS: FUROSEMIDE 10 MG/ML 4ML VIAL IVP SCH ×2 (09:54→20:20)
[2018-01-30] MEDS: ALLOPURINOL 100 MG TABLET PO SCH (09:54)
[2018-01-30] MEDS: METOCLOPRAMIDE 5 MG TABLET PO SCH ×3 (09:54→20:20)
[2018-01-30] MEDS: LORATADINE 10 MG TABLET PO SCH (09:54)
[2018-01-30] MEDS: FERROUS SULFATE 325 MG TABLET.DR PO SCH ×2 (09:55→18:03)
[2018-01-30] MEDS: GABAPENTIN 100 MG CAPSULE PO SCH ×3 (09:55→20:20)
[2018-01-30] MEDS: METOLAZONE 2.5 MG TABLET PO SCH (09:55)
[2018-01-30] MEDS: METOPROLOL TARTRATE 50 MG TAB PO SCH ×2 (09:55→20:20)
[2018-01-30] MEDS: LISINOPRIL 2.5 MG TABLET PO SCH (09:55)
[2018-01-30] MEDS: POTASSIUM CHLORIDE 10 MEQ/TAB.SA PO SCH ×2 (09:56→18:03)
[2018-01-30 12:01] VITALS: BP 128/76
[2018-01-30] MEDS: TRAMADOL HCL 50 MG TABLET PO PRN (12:13)
[2018-01-30] MEDS: WARFARIN SODIUM 7.5 MG TAB PO SCH (15:59)
[2018-01-30 16:00] VITALS: BP 130/84
[2018-01-30 19:26] VITALS: BP 138/85
[2018-01-30] MEDS: TAMSULOSIN HCL 0.4 MG CAP.ER.24H PO SCH (20:19)
[2018-01-30] MEDS: MONTELUKAST SODIUM 10 MG TAB PO SCH (20:19)
[2018-01-30] MEDS: HYDROXYZINE HCL 25 MG TABLET PO SCH (20:19)
[2018-01-30] MEDS: ATORVASTATIN CALCIUM 10 MG TABLET PO SCH (20:20)
[2018-01-30] MEDS: TRAZODONE HCL 50 MG TAB PO SCH (20:20)
[2018-01-30 23:41] VITALS: BP 124/69
[2018-01-31 04:03] VITALS: BP 131/73
[2018-01-31 04:32] LABS: HEMATOCRIT 31.1 % (42-54); MEAN CORPUSCULAR HEMOGLOBIN 29.6 pg (27.0-33.0); MEAN CORPUSCULAR HGB CONC 33.4 g/dL (32.0-36.0); MEAN CORPUSCULAR VOLUME 88.6 fL (79-99); PLATELET COUNT (AUTO) 109 K/uL (130-400); RED BLOOD CELL COUNT(AUTO) 3.51 MIL/uL (4.50-6.20); RED CELL DISTRIBUTION WIDTH 18.9 % (11.0-15.5); WHITE BLOOD COUNT (AUTO) 7.9 K/uL (4.8-10.8)
[2018-01-31 04:48] LABS: CREATININE 2.1 mg/dL (0.5-1.5); POTASSIUM 3.9 mmol/L (3.5-5.1)
[2018-01-31] MEDS: INSULIN R PO SSI SQ SCH ×4 (05:58→21:00)
[2018-01-31] MEDS: IPRATROPIUM/ALBUTEROL SULFATE 3 ML SOLUTION IH SCH ×4 (06:17→23:14)
[2018-01-31 07:51] VITALS: BP 126/66
[2018-01-31] MEDS: INSULIN GLARGINE 100 UNITS/ML 10 ML VIAL SQ SCH (08:00)
[2018-01-31] MEDS: POTASSIUM CHLORIDE 10 MEQ/TAB.SA PO SCH ×2 (08:25→17:18)
[2018-01-31] MEDS: FERROUS SULFATE 325 MG TABLET.DR PO SCH ×2 (08:25→17:17)
[2018-01-31] MEDS: LACTULOSE 20 GM/30 ML UDCUP PO SCH ×3 (09:59→21:36)
[2018-01-31] MEDS: RANITIDINE HCL 15 MG/1 ML PO SCH ×2 (09:59→21:31)
[2018-01-31] MEDS: LISINOPRIL 2.5 MG TABLET PO SCH (10:00)
[2018-01-31] MEDS: METOPROLOL TARTRATE 50 MG TAB PO SCH ×2 (10:00→21:24)
[2018-01-31] MEDS: METOLAZONE 2.5 MG TABLET PO SCH (10:00)
[2018-01-31] MEDS: ALLOPURINOL 100 MG TABLET PO SCH (10:01)
[2018-01-31] MEDS: GABAPENTIN 100 MG CAPSULE PO SCH ×3 (10:01→21:22)
[2018-01-31] MEDS: FUROSEMIDE 40 MG TABLET PO SCH ×2 (10:01→17:17)
[2018-01-31] MEDS: FLUOXETINE HCL 20 MG CAPSULE PO SCH (10:01)
[2018-01-31] MEDS: METOCLOPRAMIDE 5 MG TABLET PO SCH ×3 (10:01→21:23)
[2018-01-31] MEDS: LEVOFLOXACIN 500 MG/D5W 100 ML 100 ML IV SCH (10:02)
[2018-01-31] MEDS: LORATADINE 10 MG TABLET PO SCH (10:09)
[2018-01-31 11:35] VITALS: BP 124/70
[2018-01-31 16:51] VITALS: BP 113/68
[2018-01-31] MEDS: WARFARIN SODIUM 7.5 MG TAB PO SCH (17:18)
[2018-01-31 19:19] VITALS: BP 115/65
[2018-01-31] MEDS: ATORVASTATIN CALCIUM 10 MG TABLET PO SCH (21:22)
[2018-01-31] MEDS: TAMSULOSIN HCL 0.4 MG CAP.ER.24H PO SCH (21:22)
[2018-01-31] MEDS: MONTELUKAST SODIUM 10 MG TAB PO SCH (21:22)
[2018-01-31] MEDS: TRAZODONE HCL 50 MG TAB PO SCH (21:23)
[2018-01-31] MEDS: HYDROXYZINE HCL 25 MG TABLET PO SCH (21:30)
[2018-01-31 23:17] VITALS: BP 113/62
[2018-02-01 03:33] VITALS: BP 117/63
[2018-02-01 04:19] LABS: CREATININE 2.3 mg/dL (0.5-1.5); POTASSIUM 4.1 mmol/L (3.5-5.1)
[2018-02-01] MEDS: INSULIN R PO SSI SQ SCH ×3 (05:54→16:30)
[2018-02-01] MEDS: IPRATROPIUM/ALBUTEROL SULFATE 3 ML SOLUTION IH SCH ×2 (06:09→10:59)
[2018-02-01 07:45] VITALS: BP 130/78
[2018-02-01 09:22] LABS: INR 1.53 (0.85-1.15); PROTHROMBIN TIME 15.9 SEC (9.6-11.6)
[2018-02-01] MEDS: ALLOPURINOL 100 MG TABLET PO SCH (09:44)
[2018-02-01] MEDS: LISINOPRIL 2.5 MG TABLET PO SCH (09:45)
[2018-02-01] MEDS: FERROUS SULFATE 325 MG TABLET.DR PO SCH ×2 (09:45→16:40)
[2018-02-01] MEDS: METOCLOPRAMIDE 5 MG TABLET PO SCH ×2 (09:45→14:39)
[2018-02-01] MEDS: METOLAZONE 2.5 MG TABLET PO SCH (09:45)
[2018-02-01] MEDS: FUROSEMIDE 40 MG TABLET PO SCH ×2 (09:45→16:40)
[2018-02-01] MEDS: POTASSIUM CHLORIDE 10 MEQ/TAB.SA PO SCH ×2 (09:45→16:39)
[2018-02-01] MEDS: GABAPENTIN 100 MG CAPSULE PO SCH ×2 (09:46→14:39)
[2018-02-01] MEDS: FLUOXETINE HCL 20 MG CAPSULE PO SCH (09:46)
[2018-02-01] MEDS: METOPROLOL TARTRATE 50 MG TAB PO SCH (09:46)
[2018-02-01] MEDS: LEVOFLOXACIN 500 MG/D5W 100 ML 100 ML IV SCH (09:47)
[2018-02-01] MEDS: LORATADINE 10 MG TABLET PO SCH (09:47)
[2018-02-01] MEDS: INSULIN GLARGINE 100 UNITS/ML 10 ML VIAL SQ SCH (09:53)
[2018-02-01] MEDS: RANITIDINE HCL 15 MG/1 ML PO SCH (09:54)
[2018-02-01 11:34] VITALS: BP 123/78
[2018-02-01 16:07] VITALS: BP 130/72
[2018-02-01] MEDS: WARFARIN SODIUM 7.5 MG TAB PO SCH (16:40)
[2018-02-01] MEDS: TRAMADOL HCL 50 MG TABLET PO PRN (16:43)
== END 2018-02-01 18:00 | DRG 291 ==
LOC: EDH 17:01 → EDHIP 20:14 → 2DH 23:31
PROVIDERS: ADMIT Internal Medicine; ATTEND Internal Medicine
PROC: 5A09357 Assistance with Respiratory Ventilation, Less than 24 Consecutive Hours, Continuous Positive Airway Pressure (ICD-10-PCS; principal; 2018-01-26)
PROC: 5A09357 Assistance with Respiratory Ventilation, Less than 24 Consecutive Hours, Continuous Positive Airway Pressure (ICD-10-PCS; 2018-01-27)
PROC: 5A09357 Assistance with Respiratory Ventilation, Less than 24 Consecutive Hours, Continuous Positive Airway Pressure (ICD-10-PCS; 2018-01-28)
PROC: 5A09357 Assistance with Respiratory Ventilation, Less than 24 Consecutive Hours, Continuous Positive Airway Pressure (ICD-10-PCS; 2018-01-29)
PROC: 5A09357 Assistance with Respiratory Ventilation, Less than 24 Consecutive Hours, Continuous Positive Airway Pressure (ICD-10-PCS; 2018-01-30)
PROC: 5A09357 Assistance with Respiratory Ventilation, Less than 24 Consecutive Hours, Continuous Positive Airway Pressure (ICD-10-PCS; 2018-01-31)
PROC: 5A09357 Assistance with Respiratory Ventilation, Less than 24 Consecutive Hours, Continuous Positive Airway Pressure (ICD-10-PCS; 2018-02-01)
DX: I13.0 Hypertensive heart and chronic kidney disease with heart failure and stage 1 through stage 4 chronic kidney disease, or unspecified chronic kidney disease (principal); I50.43 Acute on chronic combined systolic (congestive) and diastolic (congestive) heart failure; J96.21 Acute and chronic respiratory failure with hypoxia; J18.9 Pneumonia, unspecified organism; D68.69 Other thrombophilia; D69.6 Thrombocytopenia, unspecified; N18.4 Chronic kidney disease, stage 4 (severe); N17.9 Acute kidney failure, unspecified; E66.01 Morbid (severe) obesity due to excess calories; I42.0 Dilated cardiomyopathy; R18.8 Other ascites; Z68.43 Body mass index [BMI] 50.0-59.9, adult; D63.8 Anemia in other chronic diseases classified elsewhere; E78.5 Hyperlipidemia, unspecified; F32.9 Major depressive disorder, single episode, unspecified; G47.33 Obstructive sleep apnea (adult) (pediatric); I35.1 Nonrheumatic aortic (valve) insufficiency; I48.2 Chronic atrial fibrillation; G89.29 Other chronic pain; K43.9 Ventral hernia without obstruction or gangrene; K72.90 Hepatic failure, unspecified without coma; M10.9 Gout, unspecified; Z79.01 Long term (current) use of anticoagulants; Z79.899 Other long term (current) drug therapy; Z91.11 Patient's noncompliance with dietary regimen; Z95.2 Presence of prosthetic heart valve; Z99.81 Dependence on supplemental oxygen
CPT/HCPCS: 36415; 36600; 71045; 71046; 71250; 74176; 76705; 80048; 80053; 80162; 82140; 82550; 82553; 82803; 82948; 83874; 83880; 84443; 84484; 85025; 85027; 85610; 85730; 87040; 87186; 93005; 94640; 94660; 94664; 97039; 99291; J1815; J1940; J1956